=== PATIENT | female | born 1990 | race Caucasian/White ===

== ENCOUNTER 2017-03-01 21:25 | Emergency (ER) | payer SELFPAY ==
[2017-03-01 22:59] VITALS: BP 128/87
== END 2017-03-01 22:59 | disposition home or self-care (01) ==
LOC: ED 21:25
DX: S01.81XA Laceration without foreign body of other part of head, initial encounter (principal); X58.XXXA Exposure to other specified factors, initial encounter; Y93.89 Activity, other specified; Y99.8 Other external cause status; Y92.89 Other specified places as the place of occurrence of the external cause
CPT/HCPCS: 90715; J2001